=== PATIENT | female | born 1940 | race Native Hawaiian/Other Pacific Islander ===

== ENCOUNTER 2018-09-09 08:45 | Day surgery (SDC) | payer OTHER ==
[~2018-09-09] VITALS: Ht 30.5 cm; Wt 0.5 kg
== END 2018-09-09 13:07 | disposition home or self-care (01) ==
LOC: OR 08:45
PROC: 08RK3JZ Replacement of Left Lens with Synthetic Substitute, Percutaneous Approach (ICD-10-PCS; principal; 2018-09-09)
DX: H25.812 Combined forms of age-related cataract, left eye (principal)
CPT/HCPCS: 66984; J0171; J2250; V2632